=== PATIENT | male | born 1980 | race American Indian/Alaskan Native ===

== ENCOUNTER 2018-01-11 04:28 | Emergency (ER) | payer SELFPAY ==
--- NOTE | 2018-01-11 08:01 | Emergency Department Report ---
ED ENT HPI - General Chief complaint: Sore Throat Stated complaint: SORE THROAT Time Seen by Provider: 01/11/18 07:42 Source: patient, family Mode of arrival: Ambulatory Limitations: No Limitations - History of Present Illness Initial comments: This is 37-year-old male well-nourished well-developed of a sore throat 2 days. He reports fever and chills. Denies any nausea or vomiting and abdominal pain. Denies any drooling, cough, congestion. He reports body aches 7 at 10 sore throat painful and achy. Worse with swallowing. complaint: sore throat Onset/Timin -: days(s) Location: throat Severity: severe Severity scale (0 -10): 7 Quality: aching Consistency: constant Improves with: none Worsens with: swallowing Context- Ear: other (unknown) Associated Symptoms: fever, pain with swallowing, sore throat. denies: cough, tinnitus, hearing loss, discharge from ear, rhinorrhea - Related Data Previous Rx's Medication Instructions Recorded Last Taken Type Ibuprofen [Motrin] 600 mg PO Q8H PRN #15 tablet 01/11/18 Unknown Rx Allergies Allergy/AdvReac Type Severity Reaction Status Date / Time No Known Allergies Allergy Unverified 01/11/18 04:33 ED Dental HPI - General Chief complaint: Sore Throat Stated complaint: SORE THROAT Time Seen by Provider: 01/11/18 07:42 Source: patient Mode of arrival: Ambulatory Limitations: No Limitations - Related Data Previous Rx's Medication Instructions Recorded Last Taken Type Ibuprofen [Motrin] 600 mg PO Q8H PRN #15 tablet 01/11/18 Unknown Rx Allergies Allergy/AdvReac Type Severity Reaction Status Date / Time No Known Allergies Allergy Unverified 01/11/18 04:33 ED Review of Systems ROS: Stated complaint: SORE THROAT Other details as noted in HPI Constitutional: denies: chills, fever Eyes: denies: eye discharge, vision change ENT: throat pain. denies: ear pain, dental pain, hearing loss, congestion Respiratory: denies: cough, shortness of breath, SOB with exertion, SOB at rest , stridor, wheezing Cardiovascular: denies: chest pain, palpitations, edema, syncope Gastrointestinal: denies: abdominal pain, nausea, vomiting, diarrhea Musculoskeletal: myalgia. denies: back pain, joint swelling, arthralgia Skin: denies: rash, lesions Neurological: denies: headache Hematological/Lymphatic: denies: easy bleeding, easy bruising ED Past Medical Hx - Past Medical History Previous Medical History?: No - Surgical History Past Surgical History?: No - Family History Family history: hypertension - Social History Smoking Status: Current Every Day Smoker Substance Use Type: Alcohol (occasionally, 3-4 times a month) - Medications Home Medications: Home Medications Medication Instructions Recorded Confirmed Last Taken Type Ibuprofen [Motrin] 600 mg PO Q8H PRN #15 tablet 01/11/18 Unknown Rx ED Physical Exam - General Limitations: No Limitations General appearance: alert, in no apparent distress - Head Head exam: Present: atraumatic, normocephalic, normal inspection - Eye Eye exam: Present: normal appearance, PERRL, EOMI. Absent: conjunctival injection Pupils: Present: normal accommodation - ENT ENT exam: Present: mucous membranes moist, TM's normal bilaterally, normal external ear exam. Absent: normal orophraynx - Expanded ENT Exam Expanded Ear exam: Present: normal external inspection Mouth exam: Present: tongue normal. Absent: drooling, trismus, muffled voice, tongue elevation, laceration Teeth exam: Present: normal inspection Throat exam: Positive: tonsillar erythema, tonsillar exudate. Negative: normal inspection, tonsillomegaly, R peritonsillar mass, L peritonsillar mass - Neck Neck exam: Present: normal inspection, full ROM, lymphadenopathy (bilateral cervical, anterior). Absent: tenderness, meningismus, other - Respiratory Respiratory exam: Present: normal lung sounds bilaterally. Absent: respiratory distress, chest wall tenderness, accessory muscle use - Cardiovascular Cardiovascular Exam: Present: regular rate, normal rhythm, normal heart sounds. Absent: systolic murmur, diastolic murmur - GI/Abdominal GI/Abdominal exam: Present: soft, normal bowel sounds. Absent: distended, tenderness, rigid - Extremities Exam Extremities exam: Present: normal inspection, full ROM, normal capillary refill , other (no clubbing, cyanosis or edema. +2 pulses all extremities and no neurovascular compromise). Absent: tenderness, pedal edema, joint swelling, calf tenderness - Back Exam Back exam: Present: normal inspection, full ROM. Absent: tenderness - Neurological Exam Neurological exam: Present: alert, oriented X3, normal gait, reflexes normal. Absent: motor sensory deficit - Psychiatric Psychiatric exam: Present: normal affect, normal mood - Skin Skin exam: Present: warm, dry, intact, normal color. Absent: rash ED Course Vital Signs 01/11/18 04:27 Temperature 98.9 F Pulse Rate 84 Respiratory 18 Rate Blood Pressure 128/81 O2 Sat by Pulse 96 Oximetry - Reevaluation(s) Reevaluation #1: 01/11/18 08:21 Patient given Motrin 800 mg by mouth in emergency room to manage pain. Plan to give Bicillin at patient's voice versus antibiotic pills. He is stable. Patient's strep test is negative but clinical findings based on [facility] criteria suggest strep ED Medical Decision Making - Lab Data Lab Results 01/11/18 Range/Units 05:01 Group A Strep Rapid Negative (Negative) Cultures are pending - Medical Decision Making ED course This is a 37-year-old male well-nourished well-developed here in the sore throat 2 days which looks like pus behind his throat. He has no drooling or difficulty with breathing and. No respiratory symptoms. He is here to be evaluated. Pt seen and evaluated and found to have exudative pharyngitis. His preliminary strep test is negative but cultures are pending. Patient with exudative oropharynx, erythema, lymphadenopathy and pass the anterior neck, body ache, sore throat and reports fever and chills. Based on [facility] criteria patient with strep. I discussed the patient is diagnosis and strep test and educated them on medication. He chose to be treated with Bicillin LA in emergency room rather than by mouth antibiotics. He voiced understanding of information given. 1: Exudative pharyngitis: Bicillin LA 1.2 million units 2:: Sore throat-Motrin 800 mg by mouth and plan to discharge home on Motrin.- Pain is better. Patient discharged home with prescription for Motrin Educated on diagnosis, medication and treatment plan. I discussed with patient that he can gargle with some warm salt water to help with sore throat. Patient is stable and discharged home in stable condition as vital signs are stable and he is a febrile. Patient understands that he is to follow-up with his primary care and 3 days and if he doesn't have one he can follow-up with outside Medical [facility]. Discharge home and voices understanding discharge instructions Critical care attestation.: If time is entered above; I have spent that time in minutes in the direct care of this critically ill patient, excluding procedure time. ED Disposition Clinical Impression: Exudative pharyngitis Disposition: TO HOME OR SELFCARE Is pt being admited?: No Does the pt Need Aspirin: No Condition: Stable Instructions: Strep Throat (ED) Additional Instructions: Please follow up with primary care in 2-3 days and if he do not have a primary care follow-up at [facility] Take Motrin for pain and/or fever and please take with food on his stomach as this can cause irritation Bicillin is a long acting in penicillin and this will treat as strep throat Prescriptions: Ibuprofen [Motrin] 600 mg PO Q8H PRN #15 tablet PRN Reason: Pain Referrals: PRIMARY CARE, [Primary Care Provider] - 2-3 Days [facility] [Outside] - 2-3 Days Forms: Work/School Release Form(ED)
[2018-01-11] MEDS ORDERED: BICILLIN L-A IM ONE (08:30)
[2018-01-11 08:51] VITALS: BP 121/79
== END 2018-01-11 08:56 | disposition home or self-care (01) ==
LOC: ED 04:28
DX: J02.9 Acute pharyngitis, unspecified (principal); F17.200 Nicotine dependence, unspecified, uncomplicated
CPT/HCPCS: 87116; 87430; 96372; 99283; J0561